=== PATIENT | male | born 1965 | race Caucasian/White ===

== ENCOUNTER → 2021-06-14 | Outpatient (CLI) | payer OTHER ==
[~2021-06-14] MED LIST: LISI10TA22 PO
== END ==
LOC: M LABSMTC 11:11
PROVIDERS: ATTEND Anesthesiology
DX: Z01.818 Encounter for other preprocedural examination (principal); Z20.822 Contact with and (suspected) exposure to COVID-19

== ENCOUNTER → 2021-06-14 | Outpatient (CLI) | payer OTHER ==
--- NOTE | 2021-06-14 12:22 | ECGEPIP ---
[facility] Test Date: 2021-06-14 Pat Name: MICKY BAUGH Department: Room: - Gender: Male Manager Park: JACOB : 1965 Requested By: JAYLEEN Perez Order Number: [id number] Reading MD: Veda Rodriguez Measurements Intervals [place] Rate: 71 P: -8 PA: 116 QRS: 57 QRSD: 80 T: 49 QT: 382 QTc: 415 Interpretive Statements Normal sinus rhythm SHORT PA NO PRIOR Electronically Signed on 06-14-2021 12:21:40 EDT by Veda Rodriguez
== END ==
LOC: M EKG 11:57
PROVIDERS: ATTEND Anesthesiology
DX: Z01.818 Encounter for other preprocedural examination (principal); I10 Essential (primary) hypertension

== ENCOUNTER → 2021-06-25 | Outpatient (CLI) | payer OTHER | LOC: M LABSMTC 11:08 | PROVIDERS: ATTEND Anesthesiology | DX: Z11.52 Encounter for screening for COVID-19 (principal) ==

== ENCOUNTER 2021-06-29 09:00 | Day surgery (SDC) | payer OTHER ==
[~2021-06-29] VITALS: Ht 179.1 cm; Wt 94.5 kg
[~2021-06-29 09:00] MED LIST changes: +LIDOCAINE 1% MDV 20ML VIAL SQ PRN; +LR 1,000 ML IV ONE
[2021-06-29] MEDS ORDERED: BUPIVACAINE HCL 0.25% 30ML VIAL As Ordered ONE (10:53)
[2021-06-29] MEDS ORDERED: dexameTHASONE 4 MG/ML 1ML VIAL (J1100 PER 1MG) As Ordered ONE (11:54)
[2021-06-29] MEDS ORDERED: ROCURONIUM BROMIDE 50 MG/5 ML VIAL As Ordered ONE (11:54)
[2021-06-29] MEDS ORDERED: propofoL 200 MG/20 ML VIAL As Ordered ONE (11:54)
[2021-06-29] MEDS ORDERED: KETOROLAC 60MG 2ML VIAL As Ordered ONE (11:54)
[2021-06-29] MEDS ORDERED: ONDANSETRON 4MG/2ML VIAL As Ordered ONE (11:54)
[2021-06-29] MEDS ORDERED: METOCLOPRAMIDE INJ 10MG/2ML VIAL (J2765 PER 1) As Ordered ONE (11:54)
[2021-06-29] MEDS ORDERED: SUGAMMADEX SODIUM 500 MG/5 ML VIAL (BRIDION) As Ordered ONE (11:54)
[2021-06-29] MEDS ORDERED: MIDAZOLAM INJ 2MG/2ML VIAL (J2250 PER 1MG) As Ordered ONE (11:54)
[2021-06-29] MEDS ORDERED: fentaNYL 250 MCG/5 ML INJECTION (J3010) As Ordered ONE (11:54)
[2021-06-29] MEDS ORDERED: LIDOCAINE 2% 100MG/5ML SDV (FOR ANES.) As Ordered ONE (11:54)
[2021-06-29] MEDS ORDERED: ACETAMINOPHEN 1000MG 100ML IV BTL (OFIRMEV) (J0131 PER 10MG) As Ordered ONE (11:55)
[2021-06-29] MEDS ORDERED: PHENYLephrine 500MCG 5ML (100MCG/ML) SYRINGE As Ordered ONE (11:57)
[2021-06-29] MEDS ORDERED: DESFLURANE 240 ML INHALANT As Ordered ONE (12:00)
[2021-06-29] MEDS ORDERED: ePHEDrine SULFATE 25 MG/5 ML(5MG/ML) SYRINGE As Ordered ONE (12:04)
[2021-06-29] MEDS ORDERED: ONDANSETRON 4MG/2ML VIAL IV PRN (14:15)
[2021-06-29] MEDS ORDERED: METOCLOPRAMIDE INJ 10MG/2ML VIAL (J2765 PER 1) IV PRN (14:15)
[2021-06-29] MEDS ORDERED: fentaNYL 100 MCG/2 ML INJECTION (J3010) IV PRN (14:15)
[2021-06-29] MEDS ORDERED: IBUPROFEN 600MG TAB PO PRN (14:15)
[2021-06-29] MEDS ORDERED: ACETAMINOPHEN TAB 650MG DOSE (2X325MG) PO PRN (14:15)
[2021-06-29] MEDS ORDERED: NORCO, ANEXSIA 5/325MG TABLET (HYDROcodone/ACETAMINOPHEN) PO PRN (14:15)
[2021-06-29] MEDS ORDERED: oxyCODONE 5MG TAB PO PRN (14:15)
[2021-06-29] MEDS ORDERED: LR 1,000 ML IV SCH (14:15)
[2021-06-29 15:30] VITALS: BP 135/76
[2021-06-29] MEDS ORDERED: HYDR-3715 PO (16:47)
--- NOTE | 2021-07-03 06:33 | RO ---
OPERATIVE NOTE DATE OF OPERATION: 06/29/2021 PREOPERATIVE DIAGNOSIS: Right inguinal hernia. POSTOPERATIVE DIAGNOSIS: Direct right inguinal hernia. PROCEDURE PERFORMED: Robotic-assisted laparoscopic repair of right inguinal hernia with mesh. The mesh utilized was a Covidien ProGrip, reference code [id number] and lot number [id number]. SURGEON: Hussain Rios MD SUPERVISOR GROWER: Lorna Zapien. ANESTHESIA: General. Lorna's assistance was essential for placement of the trocars, management of the robotic device, exchange of instruments, passage of the mesh and closure of the incisions. INDICATIONS FOR THE PROCEDURE: The patient is a 56-year-old man who had presented with a reducible right inguinal hernia. He is now for repair. OPERATIVE PROCEDURE: The patient was brought to the operating room and placed on the table in a supine position. He was placed under general endotracheal anesthesia. The patient's abdomen was prepped and draped in a sterile fashion. 0.25% Marcaine was infiltrated at each of the trocar sites as needed. The initial incision was in the epigastrium approximately 4-5 cm above the umbilicus. A short transverse incision was made and a Veress needle was inserted. After a positive hanging drop test, the abdomen was inflated with carbon dioxide gas. An 8-mm port was then placed over the scope and advanced through the abdominal wall without difficulty. Initial examination showed evidence for a hernia defect on the right. The liver appeared normal. visualized portions of the small and large bowel appeared normal. Two additional 8-mm ports were placed; one on the left and one on the right. The patient was placed into a 15 degree Trendelenburg position. The patient cart of the [employer]ift[employer] Xi robot was brought into position and the endoscope arm was docked to the middle port. The laparoscope was placed and targeting took place in the pelvis. The additional robotic arms were then docked. A fenestrated bipolar grasper and a cauterizing scissor were inserted. Initial examination showed no evidence of an inguinal hernia on the left. On the right-hand side, there was an accumulation of fatty tissue medial to the inferior epigastric vessels that appeared to represent a direct hernia. A peritoneal flap was then created beginning at the edge of the medial umbilical ligament and extending laterally and then inferiorly toward the anterosuperior iliac spine. The flap was developed starting medially and extending down to the pubis. The area of the femoral canal was identified and there was no femoral hernia. Dissection continued laterally. There was no indirect inguinal hernia sac but there was a definite direct hernia, perhaps 2 cm in diameter. The fibrofatty tissue was reduced from within this hernia with the overlying peritoneum. The dissection was carried laterally to create an adequate preperitoneal space for placement of mesh. I elected to close the hernia defect partially and this was accomplished with a running suture of 2-0 V-Loc beginning medially and extending laterally to the level of the inferior epigastric vessels. The residual defect was small enough that I felt that this would not be an issue. A 15 x 10 cm Covidien ProGrip mesh was then selected. Lorna Zapien trimmed the corners slightly and then this was inserted into the abdomen. This was placed into the preperitoneal space and then unfolded with the long axis oriented transversely. The mesh was pressed down posterior to the pubis and extended laterally centered over the sutured direct hernia defect. This gave excellent coverage of the area. The peritoneal flap was then closed with a running suture of 2-0 absorbable V-Loc. This was started laterally. As the closure proceeded, the patient was tilted back to a 5-degree reverse Trendelenburg position and the pressure within the abdomen was reduced to 8 mmHg to reduce the insufflation into the preperitoneal space. Once the peritoneal closure was completed, the suture needle was withdrawn. There was no evidence of any bleeding. The robotic instruments were removed and the robot was undocked and withdrawn. The abdomen was deflated and the trocars were all removed. Lorna Zapien proceeded to suture the trocar sites with buried sutures of 4-0 Vicryl and Steri-Strips were applied. Light dressings were placed. The patient tolerated the procedure well. He was awakened in the operating room, extubated, and moved to the recovery room in stable condition.
== END 2021-06-29 15:36 | disposition home or self-care (01) ==
LOC: M SDC 09:00
PROVIDERS: ATTEND Surgery
DX: K40.90 Unilateral inguinal hernia, without obstruction or gangrene, not specified as recurrent (principal); I10 Essential (primary) hypertension; Z79.899 Other long term (current) drug therapy; F17.210 Nicotine dependence, cigarettes, uncomplicated
CPT/HCPCS: 49650; C1781; J0131; J1100; J1885; J2250; J2370; J2405; J2765; J3010; S2900